=== PATIENT | female | born 1960 | race Caucasian/White ===

== ENCOUNTER → 2016-10-09 | Outpatient (CLI) | payer MEDICAID ==
[~2016-10-09] MED LIST: ACTOS30 M1 PO; CIPRO 500MG TA500 MG PO; DIOVAN HCT 25 M1 TA1 PO; GABAPENTIN 400400 MG PO; GABAPENTIN300 MG PO; GLIMEPIRIDE 4MG4 MG PO; GLUCOVANCE 2.51 TAB PO; IBUPROFEN200 MG OR; LAMISIL 250MG250 MG PO; PREDNISONE 20MG20 MG PO; SYNTHROID0.175 MG PO; TESSALON PERLE100 MG PO; TRAMADOL HYDROC1 TA1 PO; TYLENOL W/CODEI1 TA2 PO; ZOFRAN ODT4 MG PO
--- NOTE | 2016-10-09 14:38 | CARDIOVASCULAR REPORT ---
"Cerebrovascular Exam Indications: 780.4 Dizziness and giddiness. 780.2 Syncope and collapse. IMPRESSIONS 1. The bilateral vertebral arteries are patent with normal antegrade flow. 2. Study suggests less than 20% stenosis involving the right internal carotid artery and the left internal carotid artery. Carotid duplex study. Complete study and Doppler flow study including spectral analysis, color and walsh scale imaging. Height: Height: 162.6cm. Height: 64in. Weight: Weight: 108.9kg. Weight: 239.5lb. Body mass index: BMI: 41.2kg/m^2. Body surface area: BSA: 2.27m^2. Tables: Arterial flow: + +---------+--------+ |Location |V sys |V ed | + +---------+--------+ |Right CCA - proximal|64.4cm/s |11.8cm/s| + +---------+--------+ |Right CCA - distal |59.7cm/s |13.4cm/s| + +---------+--------+ |Right ECA |163cm/s |--------| + +---------+--------+ |Right ICA - proximal|-48.7cm/s|12.6cm/s| + +---------+--------+ |Right ICA - mid |58.9cm/s |19.6cm/s| + +---------+--------+ |Right ICA - distal |78.6cm/s |22.8cm/s| + +---------+--------+ |Right vertebral |62.1cm/s |--------| + +---------+--------+ |Left CCA - proximal |66.8cm/s |15.7cm/s| + +---------+--------+ |Left CCA - distal |64.4cm/s |16.5cm/s| + +---------+--------+ |Left ECA |167cm/s |--------| + +---------+--------+ |Left ICA - proximal |61.3cm/s |17.3cm/s| + +---------+--------+ |Left ICA - mid |80.1cm/s |21.2cm/s| + +---------+--------+ |Left ICA - distal |84.9cm/s |23.6cm/s| + +---------+--------+ |Left vertebral |41.6cm/s |--------| + +---------+--------+ Velocity ratios: + + + + + + | |Right, V sys|Right, V ed|Left, V sys|Left, V ed| + + + + + + |Max ICA/dist CCA|1.32 |1.7 |1.32 |1.43 | + + + + + + (Report amended ) Electronically signed by: Naresh Alexis [id number]"
== END ==
LOC: RT 14:10
DX: R42 Dizziness and giddiness (principal); R55 Syncope and collapse